=== PATIENT | male | born 1955 | race Caucasian/White ===

== ENCOUNTER 2024-02-20 17:15 | Inpatient (IN) | payer OTHER, MEDICARE ==
[~2024-02-20] VITALS: Ht 175.3 cm; Wt 78.6 kg
[2024-02-20] MEDS: ACETAMINOPHEN 325MG TABLET PO NR (17:28)
[2024-02-20] MEDS ORDERED: ACETAMINOPHEN 325MG TABLET PO STA (17:28)
[2024-02-20 18:09] LABS: BASOPHILS % 0.1 % (0.0-2.0); EOSINOPHILS % 0.1 % (0.0-5.0); HEMATOCRIT. 34.2 % (42.0-52.0); HEMOGLOBIN. 11.9 g/dL (14.0-18.0); LYMPHOCYTES % 3.8 % (20.0-50.0); MEAN CORPUSCULAR HEMOGLOBIN 29.1 pg (28.0-32.0); MEAN CORPUSCULAR HGB CONC 34.9 g/dL (31.0-37.0); MEAN CORPUSCULAR VOLUME 83.2 fL (80.0-94.0); MEAN PLATELET VOLUME 9.3 fl (7.4-10.4); MONOCYTES % 1.3 % (2.0-8.0); NEUTROPHILS % 94.7 % (40.0-76.0); PLATELET 181 x1000/uL (130-400); RED BLOOD CELL COUNT 4.11 mill/uL (4.7-6.1); RED CELL DISTRIBUTION WIDTH 13.1 % (11.6-14.6); WHITE BLOOD COUNT 18.5 x1000/uL (4.5-11.0)
[2024-02-20] MEDS: SODIUM CHLORIDE 0.9% 1000ML BAG (SEPSIS BOLUS) IV ONE (18:14)
[2024-02-20 18:16] LABS: DIFFERENTIAL COMMENT 1
[2024-02-20 18:17] LABS: CHLORIDE 99 mEq/L (98-107); POTASSIUM 4.2 mEq/L (3.5-5.1); SODIUM 134 mEq/L (136-145)
[2024-02-20] MEDS: CEFTRIAXONE 1GM/50ML 50 ML IV ONE (18:17)
[2024-02-20 18:18] LABS: CALCIUM 8.8 mg/dL (8.7-10.4); CARBON DIOXIDE 28 mEq/L (21-32)
[2024-02-20 18:19] LABS: PROTHROMBIN TIME 10.7 sec (9.6-11.0)
[2024-02-20 18:23] LABS: CREATININE 1.3 mg/dL (0.6-1.3); UREA NITROGEN BLOOD 25 mg/dL (9-23)
[2024-02-20 18:24] LABS: LACTIC ACID 2.7 mmol/L (0.4-2.0); TROPONIN I HIGH SENSITIVITY 5 ng/L (3.0-53)
[2024-02-20 18:38] LABS: GLUCOSE 408 mg/dL (70-105)
[2024-02-20 19:23] LABS: CLARITY URINE CLEAR (CLEAR); COLOR URINE YELLOW (YELLOW); GLUCOSE URINE 3+ (NEGATIVE); KETONES URINE TRACE (NEGATIVE); LEUKOCYTE ESTERASE URINE NEGATIVE (NEGATIVE); NITRITE URINE NEGATIVE (NEGATIVE); OCCULT BLOOD URINE NEGATIVE (NEGATIVE); PH URINE 5.5 (4.5-8.0); PROTEIN URINE 1+ (NEGATIVE); UROBILINOGEN URINE 0.2 E.U./dL (0.2-1.0)
[2024-02-20] MEDS ORDERED: PREG75CA76 PO (19:42)
[2024-02-20] MEDS ORDERED: ATOR40TA70 PO (19:42)
[2024-02-20] MEDS ORDERED: OMEP40CA20 PO (19:42)
[2024-02-20] MEDS ORDERED: INSU100I53 SUBCUT (19:42)
[2024-02-20] MEDS ORDERED: LOSA100T33 PO (19:42)
[2024-02-20] MEDS ORDERED: AMLO10TA80 PO (19:42)
[2024-02-20] MEDS ORDERED: ONDANSETRON HCL 4MG/2ML INJ IV PRN (19:45)
[2024-02-20] MEDS ORDERED: MAGNESIUM/ALUMINUM HYDROXIDE/SIMETHICONE 30ML UDC PO PRN (19:45)
[2024-02-20] MEDS ORDERED: NA PHOS,M-B/NA PHOS,DI-BA ENEMA 118ML PR PRN (19:45)
[2024-02-20] MEDS ORDERED: ZOLPIDEM TARTRATE 5MG TABLET PO PRN (19:45)
[2024-02-20] MEDS ORDERED: PREGABALIN 75MG CAPSULE PO SCH (19:45)
[2024-02-20] MEDS ORDERED: DOCUSATE SODIUM 100MG CAPSULE PO PRN (19:45)
[2024-02-20 20:01] LABS: BACTERIA URINE TRACE; RBC URINE 0-2 /hpf (0-2); SQUAMOUS EPITHELIAL CELL URINE FEW /lpf (RARE/1+)
[2024-02-20] MEDS: AMLODIPINE 5MG TABLET PO NR (20:30)
[2024-02-20] MEDS: LOSARTAN 100 MG TABLET PO SCH (21:00)
[2024-02-20 21:01] LABS: TROPONIN I HIGH SENSITIVITY 22 ng/L (3.0-53)
[2024-02-20 22:30] VITALS: BP 128/54; PULSE 80; RESP 18; TEMP 36.7516
[2024-02-20] MEDS: PIPERACILLIN/TAZO 3.375G/50ML 50 ML IV SCH (23:17)
[2024-02-20] MEDS: ENOXAPARIN 40MG/0.4ML SYR SUBCUT SCH (23:19)
[2024-02-20] MEDS: PREGABALIN 75MG CAPSULE PO SCH (23:20)
[2024-02-20] MEDS: ATORVASTATIN CALCIUM 40MG TABLET PO SCH (23:21)
[2024-02-20] MEDS: FAMOTIDINE 20MG TABLET PO SCH (23:21)
[2024-02-20] MEDS: INSULIN GLARGINE 100 UNITS/ML SUBCUT SCH (23:26)
[2024-02-20] MEDS: PHENAZOPYRIDINE HCL 100MG TABLET PO SCH (23:29)
[2024-02-21] VITALS: BP 126/55; PULSE 72; RESP 18; TEMP 36.6696; O2SAT 100
[2024-02-21] MEDS ORDERED: DEXTROSE 50% WATER 50ML SYRINGE IV PRN (00:15)
[2024-02-21] MEDS: BLOOD SUGAR DIAGNOSTIC STRIP TEST SCH (00:31)
[2024-02-21] MEDS: INSULIN LISPRO 100 UNITS/ML SUBCUT SCH ×2 (00:34→05:57)
[2024-02-21 04:00] VITALS: BP 136/60; PULSE 82; RESP 19; TEMP 37.39188; O2SAT 100
[2024-02-21 07:28] LABS: HEMATOCRIT. 36.7 % (42.0-52.0); HEMOGLOBIN. 12.4 g/dL (14.0-18.0); MEAN CORPUSCULAR HEMOGLOBIN 28.6 pg (28.0-32.0); MEAN CORPUSCULAR HGB CONC 33.9 g/dL (31.0-37.0); MEAN CORPUSCULAR VOLUME 84.2 fL (80.0-94.0); MEAN PLATELET VOLUME 10.2 fl (7.4-10.4); PLATELET 139 x1000/uL (130-400); RED BLOOD CELL COUNT 4.36 mill/uL (4.7-6.1); RED CELL DISTRIBUTION WIDTH 13.1 % (11.6-14.6); WHITE BLOOD COUNT 16.5 x1000/uL (4.5-11.0)
[2024-02-21 07:32] LABS: DIFFERENTIAL COMMENT 1
[2024-02-21 07:37] LABS: CHLORIDE 104 mEq/L (98-107); POTASSIUM 3.9 mEq/L (3.5-5.1); SODIUM 138 mEq/L (136-145)
[2024-02-21 07:38] LABS: CARBON DIOXIDE 27 mEq/L (21-32)
[2024-02-21 07:39] LABS: CALCIUM 8.7 mg/dL (8.7-10.4)
[2024-02-21 07:43] LABS: UREA NITROGEN BLOOD 15 mg/dL (9-23)
[2024-02-21 08:00] VITALS: BP 134/63; PULSE 72; RESP 19; TEMP 37.11408; O2SAT 97
[2024-02-21 08:02] LABS: GLUCOSE 194 mg/dL (70-105)
[2024-02-21] MEDS: AMLODIPINE 10MG TABLET PO SCH (09:03)
[2024-02-21 12:00] VITALS: BP 125/59; PULSE 71; RESP 18; TEMP 36.61404; O2SAT 98
[2024-02-21] MEDS: TAMSULOSIN HCL 0.4MG SR CAPSULE PO SCH (14:52)
[2024-02-21 16:00] VITALS: BP 137/62; PULSE 74; RESP 18; TEMP 36.6696; O2SAT 100
[2024-02-21 16:50] LABS: PLATELET ESTIMATE NORMAL
[2024-02-21] MEDS: ACETAMINOPHEN 325MG TABLET PO PRN (18:07)
[2024-02-21 20:00] VITALS: BP 92/46; PULSE 65; RESP 20; TEMP 36.50292; O2SAT 98
[2024-02-22] VITALS: BP 102/54; PULSE 68; RESP 20; TEMP 36.72516; O2SAT 98
[2024-02-22 04:00] VITALS: BP 105/39; PULSE 60; RESP 17; TEMP 36.83628; O2SAT 97
[2024-02-22 07:21] LABS: POTASSIUM 3.9 mEq/L (3.5-5.1)
[2024-02-22 07:23] LABS: CALCIUM 8.7 mg/dL (8.7-10.4)
[2024-02-22 07:27] LABS: CREATININE 1.3 mg/dL (0.6-1.3)
[2024-02-22 07:55] LABS: HEMATOCRIT. 34.4 % (42.0-52.0); HEMOGLOBIN. 11.5 g/dL (14.0-18.0); MEAN CORPUSCULAR HEMOGLOBIN 28.3 pg (28.0-32.0); MEAN CORPUSCULAR HGB CONC 33.3 g/dL (31.0-37.0); MEAN PLATELET VOLUME 10.5 fl (7.4-10.4); PLATELET 151 x1000/uL (130-400); RED BLOOD CELL COUNT 4.05 mill/uL (4.7-6.1); RED CELL DISTRIBUTION WIDTH 13.2 % (11.6-14.6); WHITE BLOOD COUNT 11.6 x1000/uL (4.5-11.0)
[2024-02-22 08:00] VITALS: BP 102/59; PULSE 55; RESP 18; TEMP 36.3918; O2SAT 99
[2024-02-22 08:22] LABS: DIFFERENTIAL COMMENT 1
[2024-02-22 12:00] VITALS: BP 137/55; PULSE 71; RESP 16; TEMP 35.78064; O2SAT 98
[2024-02-22 16:00] VITALS: BP 143/61; PULSE 69; RESP 16; TEMP 36.3918; TEMP 36.39180; O2SAT 99
[2024-02-22 16:25] LABS: PLATELET ESTIMATE NORMAL
[2024-02-22] MEDS ORDERED: LEVO-65 MT (17:28)
[2024-02-22] MEDS ORDERED: METR-167 MT (17:28)
[2024-02-22] MEDS ORDERED: TAMS-11 MT (17:30)
[2024-02-22 17:55] VITALS: BP 143/61; PULSE 69; TEMP 97.5; O2SAT 99
[2024-02-22] MEDS ORDERED: INSULIN GLARGINE 100 UNITS/ML SUBCUT SCH (22:00)
== END 2024-02-22 20:10 | disposition home or self-care (01) | DRG 872 ==
LOC: ER 17:15 → EDBEDREQ 17:31 → 7EST 19:03 → EDBEDREQ 19:04 → EDBEDREQSVC 19:04
PROVIDERS: ADMIT Internal Medicine Pulmonary Disease; ATTEND Internal Medicine Pulmonary Disease
DX: A41.50 Gram-negative sepsis, unspecified (principal); N12 Tubulo-interstitial nephritis, not specified as acute or chronic; E87.20 Acidosis, unspecified; N39.0 Urinary tract infection, site not specified; B96.89 Other specified bacterial agents as the cause of diseases classified elsewhere; Z20.822 Contact with and (suspected) exposure to COVID-19; D64.9 Anemia, unspecified; E11.65 Type 2 diabetes mellitus with hyperglycemia; E78.00 Pure hypercholesterolemia, unspecified; I10 Essential (primary) hypertension; N40.0 Benign prostatic hyperplasia without lower urinary tract symptoms
CPT/HCPCS: 36415; 71045; 74018; 74176; 80048; 81003; 82962; 83036; 83605; 84145; 84484; 85025; 87077; 87186; 87426; 93005; 99291; J0696; J1650; J1815; J2543; J7030